=== PATIENT | male | born 1990 | race Caucasian/White ===

== ENCOUNTER → 2018-12-22 | Outpatient (CLI) | payer OTHER ==
--- NOTE | 2018-12-22 13:12 | Diagnostic Imaging Report ---
INDICATION: Left shoulder pain. TECHNIQUE: AP, oblique, and transscapular views of the left shoulder were obtained. FINDINGS: No fracture or acute bony abnormality is seen. The AC joint and glenohumeral joint appear unremarkable. IMPRESSION: Negative left shoulder. Dictated by: Dictated on workstation # [id number]
== END ==
LOC: RAD 10:13
PROVIDERS: ATTEND Nurse Practitioner Family
DX: M25.512 Pain in left shoulder (principal)
CPT/HCPCS: 73030

== ENCOUNTER → 2019-04-02 | Outpatient (CLI) | payer OTHER ==
--- NOTE | 2019-04-02 13:24 | Diagnostic Imaging Report ---
PROCEDURE: MRI left upper extremity without contrast. TECHNIQUE: Multiplanar, multisequence rkj-ikionupt-clfevtrt MRI of the left upper extremity was accomplished. INDICATION: Shoulder pain. FINDINGS: There are no previous MRI examinations available for comparison. The plain film examination of the left shoulder performed on 12/22/2018 failed to show any sign of an acute abnormality. On the T2 fat-saturated coronal series of this exam, there are small areas of altered signal within the substance of the rotator cuff. These are more likely due to tendinosis than to a partial tear. There is slight irregularity of the bursal aspect of the mid portion of the rotator cuff. This portion of the cuff may be frayed. The supraspinatus muscle itself is not retracted or bunched. There is hypertrophy of the acromioclavicular joint, and this does result in mild narrowing of the outlet for the supraspinatus muscle. The biceps tendon and the subscapularis tendon are intact. There is a small sublabral cyst along the posterior aspect of the labrum. I suspect that this is an indirect sign of a labral tear. The labrum itself is thinned centrally and may be slightly torn on a degenerative basis. If further evaluation of the labrum is desired, then a followup exam with intra-articular contrast would be recommended. There is no sign of a joint effusion. There is no abnormal signal arising from the osseous structures to suggest bone edema or a fracture. IMPRESSION: 1. The small areas of altered signal within the rotator cuff are more likely due to tendinosis than to a partial tear. The most part of the rotator cuff appears to be intact, and the supraspinatus muscle is not bunched or retracted. 2. There is hypertrophy of the acromioclavicular joint, and this does result in mild narrowing of the outlet for the supraspinatus muscle. 3. The small sublabral cyst posteriorly is most likely indirect evidence of a labral tear. Recommendations as above. 4. There is no sign of an acute bony abnormality. Dictated by: Dictated on workstation # [id number]
== END ==
LOC: RAD 08:35
PROVIDERS: ATTEND Nurse Practitioner Family
DX: M75.102 Unspecified rotator cuff tear or rupture of left shoulder, not specified as traumatic (principal); M62.89 Other specified disorders of muscle
CPT/HCPCS: 73221

== ENCOUNTER → 2022-02-06 | Outpatient (CLI) | payer OTHER ==
--- NOTE | 2022-02-06 08:40 | Diagnostic Imaging Report ---
INDICATION: Chronic sinusitis. TECHNIQUE: Multiple contiguous axial images were obtained through the sinuses without the use of intravenous contrast. Coronal and sagittal reformations were then performed. Auto Exposure Controls were utilized during the CT exam to meet ALARA standards for radiation dose reduction. COMPARISON: There is no previous study for comparison. FINDINGS: The frontal sinuses are clear. The ethmoid air cells are clear. The sphenoid sinuses are clear. The maxillary sinuses are clear. There is deviation of the nasal septum toward the left side anteriorly. The nasal turbinates appear symmetric. The ostiomeatal complexes are patent. IMPRESSION: No evidence of sinus opacification. No mucosal thickening or sinus fluid levels. There is deviation of the nasal septum toward the left side. The ostiomeatal complexes are unremarkable. Dictated by: Dictated on workstation # [id number]
== END ==
LOC: RAD 08:15
PROVIDERS: ATTEND Otolaryngology Otolaryngology/Facial Plastic Surgery
DX: J32.9 Chronic sinusitis, unspecified (principal)
CPT/HCPCS: 70486

== ENCOUNTER 2022-05-17 18:59 | Emergency (ER) | payer OTHER ==
[~2022-05-17] VITALS: Ht 172 cm; Wt 72.5 kg
--- NOTE | 2022-05-17 20:14 | ED Cough/URI ---
General Chief Complaint: COVID19 Suspect/Confirmed Stated Complaint: COVID+ TEST TODAY, WANTS 2ND + TEST Nursing Triage Note: pt ambulatory to room. pt states he took a home test for covid today and it was positive. pt states he has a headache, sinus pressure, and chest tightness when he coughs. pt states he need an official positive test for his duties Source: patient Exam Limitations: no limitations History of Present Illness Date Seen by Provider: May 17, 2022 Time Seen by Provider: 20:10 Initial Comments This is a healthy 31-year-old male that presents to the emergency room for evaluation of sinus pressure, headaches, cough and chest tightness. He has been sick for couple days and states that he had a positive COVID test at home. He needs confirmation due to being in the . Patient denies severe shortness of breath or weakness Timing/Duration: just prior to arrival Severity/Quality: mild Prior Episodes/Possible Cause: no prior episodes Allergies and Home Medications Patient Home Medication List Home Medication List Reviewed: Yes Albuterol Sulfate (Proair Hfa) 1 Puff Puff, 2 PUFF IH Q4H Prescribed by: Randy Nicholson on 05/17/222015 Promethazine/Dextromethorphan (Promethazine-Dm Syrup) 6.25 Mg-15 Mg/5 Ml Syrup, 5 ML PO Q6H PRN for COUGH Prescribed by: Randy Nicholson on 05/17/222015 Review of Systems Review of Systems Constitutional: fever, malaise EENTM: nose congestion Respiratory: cough Cardiovascular: no symptoms reported Genitourinary: no symptoms reported Musculoskeletal: no symptoms reported Past Aumxbct-Dsmvdi-Sapdfe Hx Patient Social History Tobacco Use?: No Physical Exam Vital Signs - First Documented 05/17/22 19:34 Temp 36.8 Pulse 100 Resp 16 B/P (MAP) 148/102 (117) Pulse Ox 98 Capillary Refill : Height: '" Weight: lbs. oz. kg; 24.00 BMI Method: General Appearance: WD/WN, no apparent distress Eyes: Bilateral Eye Normal Inspection, Bilateral Eye PERRL, Bilateral Eye EOMI HEENT: PERRL/EOMI, pharynx normal Neck: non-tender Respiratory: chest non-tender, no respiratory distress Cardiovascular: regular rate, rhythm Gastrointestinal: normal bowel sounds Neurologic/Psychiatric: unit clerk II-XII nml as tested, no motor/sensory deficits, oriented x 3 Progress/Results/Core Measures Suspected Sepsis SIRS Temperature: Pulse: 100 Respiratory Rate: 16 Blood Pressure 148 /102 Mean: 117 Results/Orders Lab Results Laboratory Tests Test 05/17/22 19:40 Range/Units SARS-CoV-2 RNA (RT-PCR) Detected H Not Detecte Vital Signs/I&O 05/17/22 19:34 Temp 36.8 Pulse 100 Resp 16 B/P (MAP) 148/102 (117) Pulse Ox 98 Capillary Refill : Blood Pressure Mean: 117 Departure Impression Primary Impression: COVID-19 Disposition: 01 HOME, SELF-CARE Condition: Stable Departure-Patient Inst. Decision time for Depature: 20:15 Referrals: GALLO BRANDT MD (PCP/Family) Primary Care Physician Patient Instructions: COVID-19 (DC) Add. Discharge Instructions: Please follow CDC guidelines for quarantine as we discussed. Return with any severe changes or worsening of symptoms. All discharge instructions reviewed with patient and/or family. Voiced understanding. Scripts Promethazine/Dextromethorphan (Promethazine-Dm Syrup) 6.25 Mg-15 Mg/5 Ml Syrup 5 ML PO Q6H PRN for COUGH for 7 Days, #240 ML Prov: AXEL NICHOLSON 05/17/22 Albuterol Sulfate (PROAIR HFA) 1 Puff Puff 2 PUFF IH Q4H for Cough for 7 Days, #1 EA 1 PUFF = 90 MCG Prov: AXEL NICHOLSON 05/17/22 AXEL NICHOLSON May 17, 2022 20:13
[2022-05-17] MEDS ORDERED: D-ME473S11 PO ×2 (20:16→20:35)
[2022-05-17] MEDS ORDERED: RT-ALBUINH IH ×2 (20:16→20:35)
[2022-05-17 20:37] VITALS: BP 131/90
== END 2022-05-17 20:47 | disposition home or self-care (01) ==
LOC: EDUNIT# 18:59 → ER 19:01
DX: U07.1 COVID-19 (principal)
CPT/HCPCS: 87636; 99283

== ENCOUNTER 2022-10-20 10:44 | Emergency (ER) | payer OTHER ==
[~2022-10-20 10:44] MED LIST: ALBU8.5H6 IH; D-ME473S11 PO
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
[2022-10-20] MEDS ORDERED: IBUPROFEN 600 MG (MOTRIN) TAB PO ONE (11:00)
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
[2022-10-20 12:14] VITALS: BP 126/78
== END 2022-10-20 12:16 | disposition home or self-care (01) ==
LOC: EDUNIT# 10:44 → ER FS 10:45
DX: M54.50 Low back pain, unspecified (principal); M25.552 Pain in left hip; F17.200 Nicotine dependence, unspecified, uncomplicated; V47.5XXA Car driver injured in collision with fixed or stationary object in traffic accident, initial encounter; Y92.410 Unspecified street and highway as the place of occurrence of the external cause
CPT/HCPCS: 72131; 72192